=== PATIENT | male | born 1985 | race African-American/Black ===

== ENCOUNTER 2020-05-07 19:52 | Emergency (ER) | payer SELFPAY ==
[~2020-05-07] VITALS: Ht 180.3 cm; Wt 73.0 kg
[2020-05-07] MEDS ORDERED: ONDANSETRON HCL 4MG/2ML INJ IV STA (20:08)
[2020-05-07] MEDS ORDERED: SODIUM CHLORIDE 0.9% 1,000 ML IV ONE (20:15)
[2020-05-07 21:21] LABS: BASOPHILS % 0.3 % (0.0-2.0); EOSINOPHILS % 0.2 % (0.0-5.0); HEMATOCRIT. 44.7 % (42.0-52.0); HEMOGLOBIN. 14.8 g/dL (14.0-18.0); MEAN CORPUSCULAR VOLUME 96.5 fL (80.0-94.0); MEAN PLATELET VOLUME 8.1 fl (7.4-10.4); MONOCYTES % 4.9 % (2.0-8.0); NEUTROPHILS % 72.6 % (40.0-76.0); PLATELET 299 x1000/uL (130-400); RED BLOOD CELL COUNT 4.63 mill/uL (4.7-6.1); RED CELL DISTRIBUTION WIDTH 14.9 % (11.6-14.6)
[2020-05-07 21:29] LABS: BG BASE EXCESS -2.2 mmol/L (-2.0-2.0); BG CARBOXYHEMOGLOBIN 0.8 % (0.5-1.5); BG DEOXYHEMOGLOBIN 3.9 % (0.0-5.0); BG FRACTION INSPIRED OXYGEN 21; BG METHEMOGLOBIN 0.1 % (0.0-1.5); BG OXYGEN SATURATION 96.1 % (92.0-98.5); BG OXYHEMOGLOBIN 95.2 % (94.0-97.0); BG PCO2 40.8 mmHg (35.0-45.0); BG PH 7.368 (7.350-7.450); BG PO2 96.3 mmHg (75.0-100.0); BG TOTAL HEMOGLOBIN 14.7 g/dL (12.0-18.0); BG VENT MODE ROOM AIR
[2020-05-07 22:15] LABS: CHLORIDE 109 mEq/L (98-107)
[2020-05-07 22:33] LABS: ETHANOL BLOOD 398 mg/dL
[2020-05-08 03:30] VITALS: BP 109/56
== END 2020-05-08 04:47 | disposition home or self-care (01) ==
LOC: ER 19:52
DX: F19.10 Other psychoactive substance abuse, uncomplicated (principal); F10.129 Alcohol abuse with intoxication, unspecified; Y90.8 Blood alcohol level of 240 mg/100 ml or more
CPT/HCPCS: 36415; 36600; 70450; 71045; 80053; 80307; 80320; 80329; 82140; 82375; 82805; 82962; 83605; 84484; 85025; 93005; 96361; 96374; 99285; J2405; J7030; G0480

== ENCOUNTER 2020-05-09 22:47 | Emergency (ER) | payer SELFPAY ==
[~2020-05-09] VITALS: Ht 180.3 cm; Wt 82.0 kg
[2020-05-10 00:23] LABS: BASOPHILS % 1.7 % (0.0-2.0); EOSINOPHILS % 1.6 % (0.0-5.0); HEMATOCRIT. 46.2 % (42.0-52.0); HEMOGLOBIN. 15.2 g/dL (14.0-18.0); LYMPHOCYTES % 43.3 % (20.0-50.0); MEAN CORPUSCULAR HEMOGLOBIN 31.8 pg (28.0-32.0); MEAN CORPUSCULAR VOLUME 96.6 fL (80.0-94.0); MEAN PLATELET VOLUME 8.1 fl (7.4-10.4); MONOCYTES % 4.1 % (2.0-8.0); NEUTROPHILS % 49.3 % (40.0-76.0); PLATELET 291 x1000/uL (130-400); RED BLOOD CELL COUNT 4.78 mill/uL (4.7-6.1); RED CELL DISTRIBUTION WIDTH 15.3 % (11.6-14.6)
[2020-05-10 00:30] LABS: CHLORIDE 108 mEq/L (98-107)
[2020-05-10 03:30] VITALS: BP 120/75
== END 2020-05-10 03:36 | disposition home or self-care (01) ==
LOC: ER 23:44
DX: R56.9 Unspecified convulsions (principal)
CPT/HCPCS: 36415; 71045; 80053; 83880; 84484; 85025; 93005; 99285

== ENCOUNTER 2020-12-28 16:11 | Emergency (ER) | payer SELFPAY ==
[~2020-12-28] VITALS: Ht 185.4 cm; Wt 84.0 kg
[2020-12-28] MEDS ORDERED: SODIUM CHLORIDE 0.9% 1,000 ML IV ONE ×2 (16:30→19:00)
[2020-12-28 17:35] LABS: BASOPHILS % 0.6 % (0.0-2.0); EOSINOPHILS % 1.1 % (0.0-5.0); HEMATOCRIT. 40.3 % (42.0-52.0); HEMOGLOBIN. 13.5 g/dL (14.0-18.0); MEAN CORPUSCULAR HEMOGLOBIN 32.8 pg (28.0-32.0); MEAN CORPUSCULAR VOLUME 98.2 fL (80.0-94.0); MEAN PLATELET VOLUME 7.9 fl (7.4-10.4); MONOCYTES % 4.1 % (2.0-8.0); NEUTROPHILS % 69.2 % (40.0-76.0); PLATELET 349 x1000/uL (130-400); RED CELL DISTRIBUTION WIDTH 16.9 % (11.6-14.6)
[2020-12-28 17:42] LABS: CHLORIDE 113 mEq/L (98-107)
[2020-12-28 17:51] LABS: CREATINE KINASE 105 IU/L (39-308)
[2020-12-28 17:59] LABS: ETHANOL BLOOD 410 mg/dL
[2020-12-28 18:08] LABS: BG BASE EXCESS -1.5 mmol/L (-2.0-2.0); BG CARBOXYHEMOGLOBIN 0.9 % (0.5-1.5); BG DEOXYHEMOGLOBIN 7.2 % (0.0-5.0); BG FRACTION INSPIRED OXYGEN 21; BG HCO3 ACT 25.7 mmol/L (22.0-26.0); BG METHEMOGLOBIN 0.7 % (0.0-1.5); BG OXYGEN SATURATION 92.7 % (92.0-98.5); BG OXYHEMOGLOBIN 91.2 % (94.0-97.0); BG PCO2 52.6 mmHg (35.0-45.0); BG PH 7.306 (7.350-7.450); BG SAMPLE SITE RIGHT RADIAL; BG TOTAL HEMOGLOBIN 14.6 g/dL (12.0-18.0); BG VENT MODE ROOM AIR
[2020-12-28 22:17] VITALS: BP 120/85
== END 2020-12-28 22:19 | disposition home or self-care (01) ==
LOC: ER 16:11
DX: F10.129 Alcohol abuse with intoxication, unspecified (principal); Y90.8 Blood alcohol level of 240 mg/100 ml or more
CPT/HCPCS: 36415; 36600; 70450; 71045; 80053; 80320; 82140; 82375; 82550; 82805; 83605; 84443; 84484; 85025; 93005; 96360; 96361; 99285; J7030; 80305; 81003; G0480

== ENCOUNTER 2021-10-03 11:27 | Emergency (ER) | payer SELFPAY ==
[~2021-10-03] VITALS: Ht 177.8 cm; Wt 69.0 kg
[2021-10-03 12:24] LABS: BASOPHILS % 0.7 % (0.0-2.0); HEMATOCRIT. 42.6 % (42.0-52.0); HEMOGLOBIN. 14.3 g/dL (14.0-18.0); LYMPHOCYTES % 31.8 % (20.0-50.0); MEAN CORPUSCULAR HEMOGLOBIN 32.6 pg (28.0-32.0); MEAN CORPUSCULAR VOLUME 97.4 fL (80.0-94.0); MEAN PLATELET VOLUME 7.1 fl (7.4-10.4); NEUTROPHILS % 54.5 % (40.0-76.0); PLATELET 261 x1000/uL (130-400); RED BLOOD CELL COUNT 4.38 mill/uL (4.7-6.1)
[2021-10-03 12:35] LABS: CHLORIDE 109 mEq/L (98-107)
[2021-10-03] MEDS ORDERED: NALOXONE HCL 1 MG/ML 2ML VIAL IV ONE ×2 (12:45→13:00)
[2021-10-03] MEDS ORDERED: NALOXONE HCL 1 MG/ML 2ML VIAL IM ONE (13:00)
[2021-10-03 13:44] LABS: ETHANOL BLOOD 482 mg/dL
[2021-10-03 17:00] VITALS: BP 131/81
== END 2021-10-03 17:20 | disposition home or self-care (01) ==
LOC: ER 11:43
DX: T40.2X1A Poisoning by other opioids, accidental (unintentional), initial encounter (principal); Y92.9 Unspecified place or not applicable; F10.129 Alcohol abuse with intoxication, unspecified; Y90.8 Blood alcohol level of 240 mg/100 ml or more; F17.210 Nicotine dependence, cigarettes, uncomplicated; R94.31 Abnormal electrocardiogram [ECG] [EKG]
CPT/HCPCS: 36415; 80053; 80320; 85025; 93005; 96374; 99291; J2310; G0480

== ENCOUNTER 2022-03-17 15:25 | Emergency (ER) | payer SELFPAY ==
[~2022-03-17] VITALS: Ht 170.2 cm; Wt 64.0 kg
[2022-03-17] MEDS ORDERED: SODIUM CHLORIDE 0.9% 1,000 ML IV ONE (15:45)
[2022-03-17 16:27] LABS: BASOPHILS % 1.1 % (0.0-2.0); EOSINOPHILS % 1.4 % (0.0-5.0); HEMATOCRIT. 39.4 % (42.0-52.0); HEMOGLOBIN. 13.1 g/dL (14.0-18.0); LYMPHOCYTES % 27.7 % (20.0-50.0); MEAN CORPUSCULAR HEMOGLOBIN 33.1 pg (28.0-32.0); MEAN CORPUSCULAR VOLUME 99.4 fL (80.0-94.0); MEAN PLATELET VOLUME 6.6 fl (7.4-10.4); MONOCYTES % 8.5 % (2.0-8.0); NEUTROPHILS % 61.3 % (40.0-76.0); PLATELET 428 x1000/uL (130-400); RED BLOOD CELL COUNT 3.96 mill/uL (4.7-6.1); RED CELL DISTRIBUTION WIDTH 17.5 % (11.6-14.6)
[2022-03-17] MEDS ORDERED: NALOXONE HCL 1 MG/ML 2ML VIAL IV ONE (16:30)
[2022-03-17 16:37] LABS: CHLORIDE 105 mEq/L (98-107)
[2022-03-17 17:03] LABS: CLARITY URINE CLEAR (CLEAR); COLOR URINE YELLOW (YELLOW); KETONES URINE NEGATIVE (NEGATIVE); LEUKOCYTE ESTERASE URINE NEGATIVE (NEGATIVE); NITRITE URINE NEGATIVE (NEGATIVE); OCCULT BLOOD URINE NEGATIVE (NEGATIVE); PH URINE 5.5 (4.5-8.0); PROTEIN URINE TRACE (NEGATIVE); SPECIFIC GRAVITY URINE 1.008 (1.005-1.030); UROBILINOGEN URINE 0.2 E.U./dL (0.2-1.0)
[2022-03-17 17:04] LABS: ETHANOL BLOOD 640 mg/dL
[2022-03-17 17:27] LABS: *AMPHETAMINES SCREEN URINE NEGATIVE (NEGATIVE); *BARBITURATES SCREEN URINE NEGATIVE (NEGATIVE); *BENZODIAZEPINES SCREEN URINE NEGATIVE (NEGATIVE); *COCAINE SCREEN URINE NEGATIVE (NEGATIVE); CANNABINOID URINE SCREEN NEGATIVE (NEGATIVE); METHADONE URINE SCREEN NEGATIVE (NEGATIVE); OPIATES URINE SCREEN NEGATIVE (NEGATIVE); PHENCYCLIDINE URINE SCREEN NEGATIVE (NEGATIVE)
[2022-03-17] MEDS ORDERED: POTASSIUM CHLORIDE 20MEQ TABLET SR PO ONE (17:45)
[2022-03-17] MEDS ORDERED: KCL 10MEQ/50ML PREMIX 50 ML IV ONE (17:45)
[2022-03-17] MEDS ORDERED: NALOXONE HCL 1 MG/ML 2ML VIAL IV NR (18:30)
[2022-03-18 06:30] VITALS: BP 144/93
== END 2022-03-18 06:45 | disposition home or self-care (01) ==
LOC: ER 15:25
DX: T51.0X1A Toxic effect of ethanol, accidental (unintentional), initial encounter (principal); G92.8 Other toxic encephalopathy; E87.8 Other disorders of electrolyte and fluid balance, not elsewhere classified; Y90.8 Blood alcohol level of 240 mg/100 ml or more; Y92.488 Other paved roadways as the place of occurrence of the external cause
CPT/HCPCS: 36415; 70450; 80053; 80305; 80307; 80320; 80329; 81003; 85025; 93005; 96361; 96374; 99285; J2310; J3480; J7030; G0480